=== PATIENT | female | born 1945 | race Caucasian/White ===

== ENCOUNTER 2017-02-10 17:37 | Emergency (ER) | payer MEDICARE ==
[2017-02-10 17:56] VITALS: BP 155/61
--- NOTE | 2017-02-10 18:16 | UC ---
Skin Complaint HPI - HPI Summary HPI Summary: 71 y/o female presents to the urgent care c/o of tick bite in her medial side of left buttocks since last Saturday02/06/2017. Pt stays [place] She felt the tick, she was trying to removed it, but unable to visualize it.She is not sure if it still in her skin. She has a sore red area. She felt some body aches this morning. Pt denies pain,fever, DAILEY, SOB, chest pain ,N/V/D - History of Current Complaint Chief Complaint: UCSkin Time Seen by Provider: 02/10/17 18:05 Stated Complaint: TICK BITE Hx Obtained From: Patient Hx Last Menstrual Period: menopausal ?: No Onset/Duration: Sudden Onset, Lasting Days - 5 days, Still Present Skin Exposure Onset/Duration: Days Ago Timing: Constant Onset Severity: Mild Current Severity: Mild Pain Intensity: 0 Pain Scale Used: 0-10 Numeric Location: Discrete - medial side of left buttocks Character: Redness Aggravating Factor(s): Nothing Alleviating Factor(s): Nothing Associated Signs & Symptoms: Positive: Negative Related History: Possible Reaction to: Insect - Allergy/Home Medications Allergies/Adverse Reactions: Allergies Allergy/AdvReac Type Severity Reaction Status Date / Time Naproxen AdvReac Intermediate Stomach Verified 02/10/17 17:56 Cramps Ibuprofen AdvReac See Comment Verified 02/10/17 17:56 Lisinopril AdvReac Coughing Verified 02/10/17 17:56 Review of Systems Constitutional: Negative Skin: Other - tick bite on the left buttocks Eyes: Negative ENT: Negative Respiratory: Negative Cardiovascular: Negative Gastrointestinal: Negative Genitourinary: Negative Motor: Negative Musculoskeletal: Negative Neurological: Negative Psychological: Negative Is Patient Immunocompromised?: No All Other Systems Reviewed And Are Negative: Yes PMH/Surg Hx/FS Hx/Imm Hx Previously Healthy: Yes Endocrine History: Hypothyroidism Other Endocrine History: Polymyalgia Rheumatica - Surgical History Surgical History: Yes Surgery Procedure, Year, and Place: APPENDECTOMY 1958 as a child, hyster 1986, left arhtroscopy 1996; - Family History Known Family History: Positive: Cardiac Disease, Hypertension, Diabetes Family History: Asthma, stroke - Social History Occupation: Retired Lives: With Family Alcohol Use: Daily Alcohol Amount: 1-2 drinks daily, 8-14 per week, wine Substance Use Type: None Smoking Status (MU): Former Smoker - Immunization History Most Recent Pneumonia Vaccination: 10/20 Physical Exam Triage Information Reviewed: Yes Vital Signs: Initial Vital Signs Temp 97.3 F 02/10/17 17:50 Pulse 70 02/10/17 17:50 Resp 18 02/10/17 17:50 BP 155/61 02/10/17 17:50 Pulse Ox 99 02/10/17 17:50 - Additional Comments Vital Signs Reviewed: Yes Eyes: Positive: Conjunctiva Clear - PERRLA, EOMI ENT: Positive: Normal ENT inspection, Hearing grossly normal, Pharynx normal, TMs normal Neck: Positive: Supple, Nontender, No Lymphadenopathy Respiratory: Positive: Chest nontender, Lungs clear, Normal breath sounds Cardiovascular: Positive: RRR, No Murmur, Pulses Normal Abdomen Description: Positive: Nontender, No Organomegaly, Soft. Negative: CVA Tenderness (R), CVA Tenderness (L) Bowel Sounds: Positive: Present Musculoskeletal: Positive: Strength Intact, ROM Intact, No Edema Neurological Exam: Normal Psychological Exam: Normal Skin: Positive: rashes - medial aspect left gluteus with tick bite with surrounding erythema, non tender to palpation. tick no longer present, no swelling or drainage observed. Course/Dx - Course Course Of Treatment: 71 y/o female presents to the urgent care c/o of tick bite in her medial side of left buttocks since last Saturday02/06/2017. Pt stays [place] She felt the tick, she was trying to removed it, but unable to visualize it.She is not sure if it still in her skin. She has a sore red area. She felt some body aches this morning. Pt denies pain,fever, DAILEY, SOB, chest pain ,N/V/D. Hx obtained. Most likely a tick bite on examination. Since Tick bite probably happened more than 48hrs of exposure. Pt will be given full treatment. Pt with Hx of Polymialgia Rheumatica on Metrotrexate Po. Pt will be treated with Amoxicillin PO instead of Doxycycline due to possible adverse reaction. Pt Rx only 1 week of treatment and f/u with PCP for further management since Metrotrexate decreases the clearance of ABX. Pt given first dose of ABX at the clinic.Pt's BP elevated advised to decrease salt in her diet and monitor BP, if continues to be elevated to f/u with PCP. Pt explained D/C instructions. Pt understood and agreed and left the clinic ambulating. - Differential Diagnoses - Skin Complaint Differential Diagnoses: Abscess, Cellulitis, Local Allergic Reaction, MRSA, Tick Born Illness, Urticaria - Diagnoses Provider Diagnoses: 1- Tick bite on left gluteus. 2- Elevated BP w/o HX of HTN Discharge - Discharge Plan Condition: Stable Disposition: HOME Prescriptions: Amoxicillin PO (*) [Amoxicillin 500 MG CAP*] 500 mg PO TID #20 cap Bacitracin OINTMENT* 1 applic TOPICAL TID #1 tube Patient Education Materials: Lyme Disease (ED), Tick Bite (ED), Low Sodium Diet (ED) Referrals: Lisa Franco MD [Primary Care Provider] - 1 Week Additional Instructions: 1- Please observe the area for the development or Erythema Migrans for upto 30 days following exposure. Components of the tick saliva can cause transient erythema that should not be confused with Erythema Migrans. 2- apply Bacitracin topical cream as directed. 3-Antibiotic prophylaxis with Doxycycline for Lyme disease with Amoxicillin PO since you exposure to the tick has been more than 72 hrs and you are taking Metrotraxate PO for your Polymyalgia rheumatica. 4- Please F/u with your PCP in 1 week for further evaluation and treatment
[2017-02-10] MEDS ORDERED: DOXYcycline CAP(*) 100 MG PO ONE (18:23)
[2017-02-10] MEDS ORDERED: Amoxicillin PO (*) 500 MG CAP PO ONE (18:34)
== END 2017-02-10 19:00 | disposition home or self-care (01) ==
LOC: UCEAST 17:37
DX: S30.860A Insect bite (nonvenomous) of lower back and pelvis, initial encounter (principal); E03.9 Hypothyroidism, unspecified; W57.XXXA Bitten or stung by nonvenomous insect and other nonvenomous arthropods, initial encounter; Y92.9 Unspecified place or not applicable
CPT/HCPCS: 99212; A9270-GY; G0463

== ENCOUNTER 2018-10-29 16:47 | Emergency (ER) | payer MEDICARE ==
--- NOTE | 2018-10-29 17:45 | ED ---
Skin Complaint - HPI Summary HPI Summary: noticed something on the back of her right arm and she is concerned it is a tick - History of Current Complaint Chief Complaint: EDAnimalBite Time Seen by Provider: 10/29/18 17:45 Stated Complaint: TICK IN RT ARM PER PT Hx Obtained From: Patient Hx Last Menstrual Period: menopausal Onset/Duration: Started Days Ago - noticed this morning Timing: Constant Pain Intensity: 0 Pain Scale Used: 0-10 Numeric Skin Location: Discrete Aggravating Symptom(s): Nothing Alleviating Symptom(s): Nothing Associated Signs & Symptoms: Negative - Allergy/Home Medications Allergies/Adverse Reactions: Allergies Allergy/AdvReac Type Severity Reaction Status Date / Time ibuprofen Allergy GI Upset Verified 10/29/18 16:54 lisinopril Allergy Coughing Verified 10/29/18 16:54 naproxen Allergy GI Upset Verified 10/29/18 16:54 PMH/Surg Hx/FS Hx/Imm Hx Endocrine/Hematology History: Reports: Hx Thyroid Disease Denies: Hx Diabetes Cardiovascular History: Reports: Hx Hypertension, Other Cardiovascular Problems/ Disorders - murmur Denies: Hx Hypercholesterolemia, Hx Peripheral Vascular Disease Respiratory History: Reports: Other Respiratory Problems/Disorders - SOB at times Denies: Hx Asthma, Hx Chronic Obstructive Pulmonary Disease (COPD) GI History: Reports: Other GI Disorders - appendicitis w/ peritonitis at age 15 , leading to chronic abdo cramping Denies: Hx Ulcer History: Denies: Hx Kidney Stones Musculoskeletal History: Reports: Hx Arthritis, Hx Back Problems, Other Musculoskeletal History - polymyalgia rheumatica Denies: Hx Osteoporosis Sensory History: Reports: Hx Contacts or Glasses Denies: Hx Cataracts, Hx Glaucoma Opthamlomology History: Reports: Hx Contacts or Glasses Denies: Hx Cataracts, Hx Glaucoma Neurological History: Reports: Other Neuro Impairments/Disorders - PAIN CLINIC PATIENT Denies: Hx Headaches, Hx Seizures, Hx Transient Ischemic Attacks (TIA) Psychiatric History: Denies: Hx Anxiety, Hx Depression - Cancer History Hx Chemotherapy: No Hx Radiation Therapy: No - Surgical History Surgery Procedure, Year, and Place: APPENDECTOMY 1958 as a child, hyster 1986, left arhtroscopy 1996; Infectious Disease History: No Infectious Disease History: Reports: Hx Hepatitis Denies: Hx Clostridium Difficile, Hx Human Immunodeficiency Virus (HIV), Hx of Known/Suspected MRSA, Hx Shingles, Hx Tuberculosis, Hx Known/Suspected VRE, Hx Known/Suspected VRSA, History Other Infectious Disease, Traveled Outside the [place] in Last 30 Days - Family History Known Family History: Positive: Cardiac Disease, Hypertension, Diabetes Family History: Asthma, stroke - Social History Occupation: Retired Lives: Alone Alcohol Use: Daily Alcohol Amount: 1-2 drinks daily, 8-14 per week, wine Hx Substance Use: No Substance Use Type: Reports: None Hx Tobacco Use: No Smoking Status (MU): Former Smoker Review of Systems Constitutional: Negative Eyes: Negative ENT: Negative Cardiovascular: Negative Respiratory: Negative Gastrointestinal: Negative Genitourinary: Negative Musculoskeletal: Negative Positive: Other - "?tick on back of right upper arm Neurological: Negative Psychological: Normal All Other Systems Reviewed And Are Negative: Yes Physical Exam Triage Information Reviewed: Yes Vital Signs On Initial Exam: Initial Vitals Temp Pulse Resp BP Pulse Ox 98.5 F 68 16 178/80 96 10/29/18 16:49 10/29/18 16:49 10/29/18 16:49 10/29/18 16:49 10/29/18 16:49 Vital Signs Reviewed: Yes Appearance: Positive: Well-Appearing, No Pain Distress, Well-Nourished Skin: Positive: Warm, Skin Color Reflects Adequate Perfusion, Other - scabbed area back of right arm Head/Face: Positive: Normal Head/Face Inspection Eyes: Positive: Normal, EOMI, MIRNA ENT: Positive: Normal ENT inspection, Hearing grossly normal Neck: Positive: Supple Respiratory/Lung Sounds: Positive: Breath Sounds Present Cardiovascular: Positive: Normal, RRR, Pulses are Symmetrical in both Upper and Lower Extremities Musculoskeletal: Positive: Normal, Strength/ROM Intact Neurological: Positive: Normal, Sensory/Motor Intact, Alert, Oriented to Person Place, Time, CN Intact II-III Psychiatric: Positive: Normal AVPU Assessment: Alert - [place]der[place]ott Coma Scale Best Eye Response: 4 - Spontaneous Best Motor Response: 6 - Obeys Commands Best Verbal Response: 5 - Oriented Coma Scale Total: 15 Diagnostics - Vital Signs Vital Signs Temp Pulse Resp BP Pulse Ox 10/29/18 16:49 98.5 F 68 16 178/80 96 - Laboratory Lab Statement: Any lab studies that have been ordered have been reviewed, and results considered in the medical decision making process. Re-Evaluation - Re-Evaluation First Eval Change: Unchanged - scabbed unroofed with minually swipe of the skin no pic or reminents of a ticked noted- Course/Dx - Course Assessment/Plan: follow with pcp for blood pressure recheck, mild soap and water wash , information regarding tick and lyme provided as well as hypertension - Diagnoses Provider Diagnoses: Hypertension, Scab Discharge - Sign-Out/Discharge Documenting (check all that apply): Patient Departure Patient Received Moderate/Deep Sedation with Procedure: No - Discharge Plan Condition: Stable Disposition: HOME Patient Education Materials: Lyme Disease (ED), Tick Bite (ED), Hypertension ( ED) Referrals: Lisa Franco MD [Primary Care Provider] - 2 Weeks (for bp recheck ) Additional Instructions: You did not have a tick on your arm! What you felt was a scab and it may have been from a bug bite I have no way to tell. Mild soap and water wash follow with pcp prn - Billing Disposition and Condition Condition: STABLE Disposition: Home
[2018-10-29 18:21] VITALS: BP 138/63
== END 2018-10-29 18:20 | disposition home or self-care (01) ==
LOC: ED 16:47
DX: I10 Essential (primary) hypertension (principal); R23.4 Changes in skin texture; Z87.891 Personal history of nicotine dependence; E07.9 Disorder of thyroid, unspecified
CPT/HCPCS: 99282